=== PATIENT | male | born 1945 | race Caucasian/White ===

== ENCOUNTER → 2021-05-02 | Outpatient (CLI) | payer MEDICARE ==
[~2021-05-02] MED LIST: APPLE CIDER VI1 EACH PO; BENADRYL 25MG C25 MG PO; CINNAMON PLUS1 EACH PO; ECOTRIN81 MG PO; MACROBID 100 M100 MG PO; PREDNISONE20 MG PO; PYRIDIUM100 MG PO; THERAGRAN M TAB1 EA PO; ZOFRAN4 MG PO
== END ==
LOC: KOH-I 13:30 → US 13:30 → KOH-I 13:32
DX: N28.1 Cyst of kidney, acquired (principal)
CPT/HCPCS: 76775